=== PATIENT | male | born 1960 | race Caucasian/White ===

== ENCOUNTER 2023-12-28 21:00 | Emergency (ER) | payer SELFPAY ==
[~2023-12-28] VITALS: Ht 170.2 cm; Wt 66.0 kg
[2023-12-28 21:18] VITALS: BP 183/107; PULSE 100; RESP 18; TEMP 98.2; O2SAT 99
== END 2023-12-28 22:00 | disposition left against medical advice (07) ==
LOC: ER 21:00
DX: I10 Essential (primary) hypertension (principal); Z53.21 Procedure and treatment not carried out due to patient leaving prior to being seen by health care provider